=== PATIENT | female | born 1945 | race Caucasian/White ===

== ENCOUNTER 2016-07-16 08:07 | Day surgery (SDC) | payer MEDICARE, OTHER ==
--- NOTE | ~2016-07-16 | EGD ---
EGD REPORT [facility] [address] [place] [id number] NAME: JERZY RAMAN : [birth year] STATUS : REG [facility]#: [id number] AGE: 70 ADM/REG DATE : 07/16/16 MR#: [id number] REPORT SERV DATE: 07/16/16 DICTATED BY: LUANA MALDONADO DATE: 07/16/16 REPORT STATUS : Draft TRANSCRIBED BY: [facility] DATE: 07/16/16 [facility] Center Patient Name: Jerzy Raman Date of : 1945 Attending MD: LUANA MALDONADO MD Procedure Date No Time: 07/16/2016 Procedure: Colonoscopy Indications: High risk colon cancer surveillance: Personal history of colonic polyps Referring MD: TIFFANY ABDI Medicines: as per anesthesia Complications: No immediate complications. Procedure: Pre-Anesthesia Assessment: - ASA Grade Assessment: III - A patient with severe systemic disease. After I obtained informed consent, the scope was passed under direct vision. Throughout the procedure, the patient's blood pressure, pulse, and oxygen saturations were monitored continuously. The PCF [id number] was introduced through the anus and advanced to the cecum, identified by appendiceal orifice and ileocecal valve. The colonoscopy was performed without difficulty. The patient tolerated the procedure. The quality of the bowel preparation was fair. Findings: The perianal and digital rectal examinations were normal. A semi-sessile polyp was found in the distal descending colon. The polyp was 7 mm in size. The polyp was removed with a jumbo cold forceps. Resection and retrieval were complete. Internal hemorrhoids were found during endoscopy and were mild. Impression: - One 7 mm polyp in the distal descending colon. Resected and retrieved. - Internal hemorrhoids. Recommendation: - Await pathology results. - Repeat colonoscopy for surveillance based on pathology results. Procedure Code(s): --- Professional --- 63247, Colonoscopy, flexible, proximal to splenic flexure; with biopsy, single or multiple Diagnosis Code(s): --- Professional --- EGD REPORT [facility] [address] [place]. [address] NAME: JERZY RAMAN : [birth year] STATUS : REG [facility] PAT#: [id number] AGE: 70 ADM/REG DATE : 07/16/16 MR#: [id number] REPORT SERV DATE: 07/16/16 DICTATED BY: LUANA MALDONADO DATE: 07/16/16 REPORT STATUS : Draft TRANSCRIBED BY: [employer] DATE: 07/16/16 D12.4, Benign neoplasm of descending colon K64.8, Other hemorrhoids Z86.010, Personal history of colonic polyps CPT copyright 2013 [employer]. All rights reserved. The codes documented in this report are preliminary and upon academic manager review may be revised to meet current compliance requirements. LUANA MALDONADO MD 07/16/2016 10:22 AM This report has been signed electronically. Number of Addenda: 0 Note Initiated On: 07/16/2016 9:24 AM Scope Withdrawal Time 0 hours 8 minutes 50 seconds [address] [facility] [place] [address]
[~2016-07-16 08:07] MED LIST: BIOTIN10 MG PO; CRESTOR10 PO; FISH OIL300 MG PO; GLUCOTROL5 PO; JANUVIA100 MG PO; LANTUS SC; NORCO1 TA2 PO; NORV25 PO; PRILOSEC40 MG PO; PRINZIDE1 TA1 PO; XALAT OPH
== END 2016-07-16 23:59 | disposition home or self-care (01) ==
LOC: DMU 08:07
PROVIDERS: Internal Medicine Gastroenterology
PROC: 0DBM8ZZ Excision of Descending Colon, Via Natural or Artificial Opening Endoscopic (ICD-10-PCS; principal; 2016-07-16 09:00)
DX: D12.4 Benign neoplasm of descending colon (principal); K64.8 Other hemorrhoids; I10 Essential (primary) hypertension; E66.01 Morbid (severe) obesity due to excess calories; Z88.6 Allergy status to analgesic agent; Z88.1 Allergy status to other antibiotic agents; E11.9 Type 2 diabetes mellitus without complications; K21.9 Gastro-esophageal reflux disease without esophagitis; R32 Unspecified urinary incontinence; M19.90 Unspecified osteoarthritis, unspecified site; H91.90 Unspecified hearing loss, unspecified ear; H40.9 Unspecified glaucoma; Z90.710 Acquired absence of both cervix and uterus; Z97.4 Presence of external hearing-aid; Z79.899 Other long term (current) drug therapy
CPT/HCPCS: 82962; 88305; J2405